=== PATIENT | female | born 1990 | race American Indian/Alaskan Native ===

== ENCOUNTER 2016-08-13 20:47 | Emergency (ER) | payer SELFPAY ==
--- NOTE | 2016-08-14 02:52 | Emergency Department Report ---
ED ENT HPI - General Chief complaint: Dental/Oral Stated complaint: TOOTHACHE Time Seen by Provider: 08/14/16 02:41 Source: patient Mode of arrival: Ambulatory Limitations: No Limitations - Related Data Previous Rx's Medication Instructions Recorded Last Taken Type HYDROcodone/APAP 5-325 [[place] 1 each PO Q6HR PRN #20 tablet 08/14/16 Unknown Rx 5/325] Penicillin Vk [Veetids TAB] 500 mg PO TID #21 tablet 08/14/16 Unknown Rx Allergies Allergy/AdvReac Type Severity Reaction Status Date / Time No Known Allergies Allergy Unverified 08/13/16 22:17 ED Dental HPI - General Chief complaint: Dental/Oral Stated complaint: TOOTHACHE Time Seen by Provider: 08/14/16 02:41 Source: patient Mode of arrival: Ambulatory Limitations: No Limitations - Related Data Previous Rx's Medication Instructions Recorded Last Taken Type HYDROcodone/APAP 5-325 [[place] 1 each PO Q6HR PRN #20 tablet 08/14/16 Unknown Rx 5/325] Penicillin Vk [Veetids TAB] 500 mg PO TID #21 tablet 08/14/16 Unknown Rx Allergies Allergy/AdvReac Type Severity Reaction Status Date / Time No Known Allergies Allergy Unverified 08/13/16 22:17 ED Review of Systems ROS: Stated complaint: TOOTHACHE Other details as noted in HPI ED Past Medical Hx - Past Medical History Previous Medical History?: No - Social History Smoking Status: Unknown if ever smoked - Medications Home Medications: Home Medications Medication Instructions Recorded Confirmed Last Taken Type HYDROcodone/APAP 5-325 [[place] 1 each PO Q6HR PRN #20 tablet 08/14/16 Unknown Rx 5/325] Penicillin Vk [Veetids TAB] 500 mg PO TID #21 tablet 08/14/16 Unknown Rx ED Physical Exam - General Limitations: No Limitations ED Course Vital Signs 08/13/16 08/14/16 22:18 03:11 Temperature 98.6 F 98.1 F Pulse Rate 86 89 Respiratory 18 16 Rate Blood Pressure 117/76 Blood Pressure 130/97 [Left] O2 Sat by Pulse 97 100 Oximetry - Reevaluation(s) Reevaluation #1: 08/14/16 03:43 Repeat chart Critical care attestation.: If time is entered above; I have spent that time in minutes in the direct care of this critically ill patient, excluding procedure time. ED Disposition Clinical Impression: Pain due to dental caries, Dental caries Disposition: DISCHARGED TO HOME OR SELFCARE Is pt being admited?: No Does the pt Need Aspirin: No Condition: Stable Instructions: Dental Caries (ED) Additional Instructions: Follow up with your dentist as scheduled. Prescriptions: HYDROcodone/APAP 5-325 [[place] 5/325] 1 each PO Q6HR PRN #20 tablet PRN Reason: Pain Penicillin Vk [Veetids TAB] 500 mg PO TID #21 tablet Referrals: PRIMARY CARE, [Primary Care Provider] - 3-5 Days Time of Disposition: 02:49
--- NOTE | 2016-08-14 02:57 | Emergency Department Report ---
ED ENT HPI - General Chief complaint: Dental/Oral Stated complaint: TOOTHACHE Time Seen by Provider: 08/14/16 02:41 Source: patient Mode of arrival: Ambulatory Limitations: No Limitations - History of Present Illness Initial comments: Patient complains of dental pain for the past month. Initially only in the left lower jaw. Now she has a bilaterally. She denies fevers she denies drainage. She denies rigors referred pain to the ears. She states she'll have insurance within the next 4 weeks will build follow up with the dentist at that time. - Related Data Previous Rx's Medication Instructions Recorded Last Taken Type HYDROcodone/APAP 5-325 [[place] 1 each PO Q6HR PRN #20 tablet 08/14/16 Unknown Rx 5/325] Penicillin Vk [Veetids TAB] 500 mg PO TID #21 tablet 08/14/16 Unknown Rx Allergies Allergy/AdvReac Type Severity Reaction Status Date / Time No Known Allergies Allergy Unverified 08/13/16 22:17 ED Dental HPI - General Chief complaint: Dental/Oral Stated complaint: TOOTHACHE Time Seen by Provider: 08/14/16 02:41 Source: patient Mode of arrival: Ambulatory Limitations: No Limitations - Related Data Previous Rx's Medication Instructions Recorded Last Taken Type HYDROcodone/APAP 5-325 [[place] 1 each PO Q6HR PRN #20 tablet 08/14/16 Unknown Rx 5/325] Penicillin Vk [Veetids TAB] 500 mg PO TID #21 tablet 08/14/16 Unknown Rx Allergies Allergy/AdvReac Type Severity Reaction Status Date / Time No Known Allergies Allergy Unverified 08/13/16 22:17 ED Review of Systems ROS: Stated complaint: TOOTHACHE Other details as noted in HPI Comment: All other systems reviewed and negative Constitutional: denies: chills, fever ENT: denies: ear pain, throat pain Respiratory: denies: cough, shortness of breath Cardiovascular: denies: chest pain ED Past Medical Hx - Past Medical History Previous Medical History?: No - Social History Smoking Status: Unknown if ever smoked - Medications Home Medications: Home Medications Medication Instructions Recorded Confirmed Last Taken Type HYDROcodone/APAP 5-325 [[place] 1 each PO Q6HR PRN #20 tablet 08/14/16 Unknown Rx 5/325] Penicillin Vk [Veetids TAB] 500 mg PO TID #21 tablet 08/14/16 Unknown Rx ED Physical Exam - General Limitations: No Limitations General appearance: alert, in no apparent distress - Head Head exam: Present: atraumatic, normocephalic - Eye Eye exam: Present: normal appearance, EOMI. Absent: scleral icterus - ENT ENT exam: Present: normal exam, mucous membranes dry, other (bilateral third molars on the bottom with evidence of caries with subsequent fracture.Does not appear to be any erythema in the gingival region or abscess appreciated. There is some mild tenderness on palpation the tooth no gum tenderness is appreciated though.) - Neck Neck exam: Present: normal inspection. Absent: tenderness, lymphadenopathy - Respiratory Respiratory exam: Present: normal lung sounds bilaterally. Absent: wheezes, rales - Cardiovascular Cardiovascular Exam: Present: regular rate, normal rhythm. Absent: systolic murmur, diastolic murmur ED Course Vital Signs 08/13/16 08/14/16 22:18 03:11 Temperature 98.6 F 98.1 F Pulse Rate 86 89 Respiratory 18 16 Rate Blood Pressure 117/76 Blood Pressure 130/97 [Left] O2 Sat by Pulse 97 100 Oximetry - Reevaluation(s) Reevaluation #1: 08/14/16 03:41 My suspicion is higher for dental caries as etiology of pain rather than abscesses. Will still try outpatient on antibiotics. She is understanding that this is only a Band-Aid. We will have her follow up with dentist. Critical care attestation.: If time is entered above; I have spent that time in minutes in the direct care of this critically ill patient, excluding procedure time. ED Disposition Clinical Impression: Pain due to dental caries, Dental caries Disposition: DISCHARGED TO HOME OR SELFCARE Is pt being admited?: No Does the pt Need Aspirin: No Condition: Stable Instructions: Dental Caries (ED) Additional Instructions: Follow up with your dentist as scheduled. Prescriptions: HYDROcodone/APAP 5-325 [[place] 5/325] 1 each PO Q6HR PRN #20 tablet PRN Reason: Pain Penicillin Vk [Veetids TAB] 500 mg PO TID #21 tablet Referrals: PRIMARY CARE, [Primary Care Provider] - 3-5 Days Time of Disposition: 03:42
[2016-08-14 03:11] VITALS: BP 130/97
== END 2016-08-14 03:10 | disposition home or self-care (01) ==
LOC: ED 20:47
DX: K02.9 Dental caries, unspecified (principal)
CPT/HCPCS: 99282

== ENCOUNTER 2017-04-13 14:16 | Emergency (ER) | payer OTHER ==
[2017-04-13] MEDS ORDERED: BSS 1 DROPS, TETRACAINE 0.5% 1 DROPS, FUL-GLO 1 MG TP ONE (14:24)
[2017-04-13] MEDS ORDERED: TETRACAINE 0.5% ONE (14:47)
[2017-04-13] MEDS ORDERED: BSS ONE (17:14)
[2017-04-13] MEDS ORDERED: FUL-GLO OP ONE ×2 (17:14→17:20)
[2017-04-13] MEDS ORDERED: BSS OU ONE (17:19)
[2017-04-13] MEDS ORDERED: ULTRAM PO ONE (17:37)
[2017-04-13] MEDS ORDERED: ZITHROMAX PO ONE (17:38)
[2017-04-13] MEDS ORDERED: CIPRODEX AD SCH (18:00)
--- NOTE | 2017-04-13 18:11 | Emergency Department Report ---
ED Eye Problem HPI - General Chief complaint: Eye Problems Stated complaint: EYE INFECTION Time Seen by Provider: 04/13/17 15:44 Source: patient Mode of arrival: Ambulatory Limitations: No Limitations - History of Present Illness Initial comments: This is a 26 y.o. female, presents with right eye swelling, pain, and drainage. She states symptoms started 4 days ago. She used old antibiotic and steroid eye drops from last visit to ER. Patient states this happened before 4 months ago after recovering from URI. She thought possibly the same thing was happening again so she started using old prescriptions 3 days ago. Admits to blurry vision , sensitivity to light, swelling, clear discharge, sharp pain, and feeling like sand is in right eye. Denies fever, SOB, or dizziness. MD chief complaint: eye pain, eye redness, vision change -: Sudden, days(s) (4 days ago) Onset Description: sudden, awoke with symptoms Location: right eye Place: home If Injury: none Eye Symptoms: redness, pain, foreign body sensation, discharge, blurry vision, photophobia Severity: severe Severity scale (0 -10): 8 If Pain, Quality: sharp, stabbing Consistency: constant Context: recent uri (URI 04/04/2017) Associated Symptoms: none. denies: headache, neck pain, nausea/vomiting, cough , rhinorrhea, fever, shortness of breath Treatments Prior to Arrival: OTC eye drops (cipro) - Related Data Previous Rx's Medication Instructions Recorded Last Taken Type HYDROcodone/APAP 5-325 [[place] 1 each PO Q6HR PRN #20 tablet 08/14/16 Unknown Rx 5/325] Penicillin Vk [Veetids TAB] 500 mg PO TID #21 tablet 08/14/16 Unknown Rx Bacitracin/Polymy B Opth Oint 1 applicatio OP BID 7 Days #1 tube 04/13/17 Unknown Rx [Polysporin Opth Oint] prednisoLONE ACETATE 1% [Pred 2 drops OD BID 7 Days #1 bottle 04/13/17 Unknown Rx Forte 1%] traMADol [Ultram 50 MG tab] 50 mg PO Q6HR PRN 5 Days #20 tablet 04/13/17 Unknown Rx Allergies Allergy/AdvReac Type Severity Reaction Status Date / Time No Known Allergies Allergy Verified 04/13/17 14:19 ED Review of Systems ROS: Stated complaint: EYE INFECTION Other details as noted in HPI Constitutional: no symptoms reported Eyes: eye pain, eye discharge, vision change (blurry) ENT: as per HPI Respiratory: no symptoms reported Cardiovascular: as per HPI Neurological: as per HPI. denies: headache, weakness, numbness, paresthesias, confusion, abnormal gait, vertigo Psychiatric: as per HPI. denies: anxiety, depression, auditory hallucinations, visual hallucinations, homicidal thoughts, suicidal thoughts ED Past Medical Hx - Past Medical History Previous Medical History?: No - Surgical History Past Surgical History?: No - Family History Family history: no significant - Social History Smoking Status: Never Smoker Substance Use Type: Alcohol - Medications Home Medications: Home Medications Medication Instructions Recorded Confirmed Last Taken Type HYDROcodone/APAP 5-325 [[place] 1 each PO Q6HR PRN #20 tablet 08/14/16 Unknown Rx 5/325] Penicillin Vk [Veetids TAB] 500 mg PO TID #21 tablet 08/14/16 Unknown Rx Bacitracin/Polymy B Opth Oint 1 applicatio OP BID 7 Days #1 tube 04/13/17 Unknown Rx [Polysporin Opth Oint] prednisoLONE ACETATE 1% [Pred 2 drops OD BID 7 Days #1 bottle 04/13/17 Unknown Rx Forte 1%] traMADol [Ultram 50 MG tab] 50 mg PO Q6HR PRN 5 Days #20 tablet 04/13/17 Unknown Rx ED Physical Exam - General Limitations: No Limitations General appearance: alert - Head Head exam: Present: normocephalic, normal inspection - Eye Eye exam: Present: conjunctival injection Pupils: Present: normal accommodation - Expanded Eye Exam Expanded Eyelids: Normal Inspection: Left, Erythema: Right, Swelling: Right Pupils: Regular, Round: Left, Reactive: Right Sclera/Conjunctival: Normal Inspection: Left, Injection: Right, Exudate: Right ( clear) Visual acuity (R) = 20/: 40 Visual acuity (L) = 20/: 20 With correction: No - ENT ENT exam: Present: normal exam - Neck Neck exam: Present: normal inspection, full ROM. Absent: tenderness, lymphadenopathy, thyromegaly - Respiratory Respiratory exam: Present: normal lung sounds bilaterally. Absent: respiratory distress, wheezes, rales, stridor, decreased breath sounds - Cardiovascular Cardiovascular Exam: Present: regular rate, normal rhythm, normal heart sounds. Absent: tachycardia, irregular rhythm, systolic murmur, diastolic murmur, rubs , gallop, clicks ED Course Vital Signs 04/13/17 04/13/17 14:19 19:22 Temperature 98.3 F Pulse Rate 104 H 78 Respiratory 18 16 Rate Blood Pressure 122/75 Blood Pressure 118/76 [Left] O2 Sat by Pulse 100 100 Oximetry Critical care attestation.: If time is entered above; I have spent that time in minutes in the direct care of this critically ill patient, excluding procedure time. ED Disposition Clinical Impression: Uveitis Disposition: DC-01 TO HOME OR SELFCARE Is pt being admited?: No Does the pt Need Aspirin: No Condition: Stable Instructions: Iritis (ED) Additional Instructions: Instructed to f/u with ophthalmology on Saturday. Follow-up with [facility], , Dr. Simpson. Prescriptions: Bacitracin/Polymy B Opth Oint [Polysporin Opth Oint] 1 applicatio OP BID 7 Days #1 tube prednisoLONE ACETATE 1% [Pred Forte 1%] 2 drops OD BID 7 Days #1 bottle traMADol [Ultram 50 MG tab] 50 mg PO Q6HR PRN 5 Days #20 tablet PRN Reason: Pain Referrals: KANCHAN HARE MD [Staff Physician] - 3-5 Days Forms: Work/School Release Form(ED) Time of Disposition: 18:45 Print Language: NORWEGIAN
[2017-04-13 19:22] VITALS: BP 118/76
== END 2017-04-13 19:24 | disposition home or self-care (01) ==
LOC: ED 14:16
DX: H20.9 Unspecified iridocyclitis (principal)
CPT/HCPCS: 99283

== ENCOUNTER 2017-07-31 09:47 | Emergency (ER) | payer SELFPAY ==
[2017-07-31 10:23] VITALS: BP 121/84
--- NOTE | 2017-07-31 12:39 | Emergency Department Report ---
ED ENT HPI - General Chief complaint: Dental/Oral Stated complaint: TOOTH ACHE Time Seen by Provider: 07/31/17 12:06 Source: patient Mode of arrival: Ambulatory Limitations: No Limitations - History of Present Illness Initial comments: Patient is a 26-year-old Female who is presenting with tooth pain. Patient states her right bottom wasn't tooth and adjacent molar have been hurting for some time. Patient states that the pain worsened over the past 3 weeks. Patient denies any fever chills nausea vomiting at this time. Patient has come here for treatment when asked why she did not go to a dentist she states because she doesn't have dental insurance. - Related Data Previous Rx's Medication Instructions Recorded Last Taken Type HYDROcodone/APAP 5-325 [[place] 1 each PO Q6HR PRN #20 tablet 08/14/16 Unknown Rx 5/325] Penicillin Vk [Veetids TAB] 500 mg PO TID #21 tablet 08/14/16 Unknown Rx Bacitracin/Polymy B Opth Oint 1 applicatio OP BID 7 Days #1 tube 04/13/17 Unknown Rx [Polysporin Opth Oint] prednisoLONE ACETATE 1% [Pred 2 drops OD BID 7 Days #1 bottle 04/13/17 Unknown Rx Forte 1%] traMADol [Ultram 50 MG tab] 50 mg PO Q6HR PRN 5 Days #20 tablet 04/13/17 Unknown Rx Allergies Allergy/AdvReac Type Severity Reaction Status Date / Time No Known Allergies Allergy Verified 04/13/17 14:19 ED Dental HPI - General Chief complaint: Dental/Oral Stated complaint: TOOTH ACHE Time Seen by Provider: 07/31/17 12:06 Source: patient Mode of arrival: Ambulatory Limitations: No Limitations - Related Data Previous Rx's Medication Instructions Recorded Last Taken Type HYDROcodone/APAP 5-325 [[place] 1 each PO Q6HR PRN #20 tablet 08/14/16 Unknown Rx 5/325] Penicillin Vk [Veetids TAB] 500 mg PO TID #21 tablet 08/14/16 Unknown Rx Bacitracin/Polymy B Opth Oint 1 applicatio OP BID 7 Days #1 tube 04/13/17 Unknown Rx [Polysporin Opth Oint] prednisoLONE ACETATE 1% [Pred 2 drops OD BID 7 Days #1 bottle 04/13/17 Unknown Rx Forte 1%] traMADol [Ultram 50 MG tab] 50 mg PO Q6HR PRN 5 Days #20 tablet 04/13/17 Unknown Rx Allergies Allergy/AdvReac Type Severity Reaction Status Date / Time No Known Allergies Allergy Verified 04/13/17 14:19 ED Review of Systems ROS: Stated complaint: TOOTH ACHE Other details as noted in HPI Comment: All other systems reviewed and negative ED Past Medical Hx - Past Medical History Previous Medical History?: No - Surgical History Past Surgical History?: No - Social History Smoking Status: Never Smoker Substance Use Type: Non Opiate Pain - Medications Home Medications: Home Medications Medication Instructions Recorded Confirmed Last Taken Type HYDROcodone/APAP 5-325 [[place] 1 each PO Q6HR PRN #20 tablet 08/14/16 Unknown Rx 5/325] Penicillin Vk [Veetids TAB] 500 mg PO TID #21 tablet 08/14/16 Unknown Rx Bacitracin/Polymy B Opth Oint 1 applicatio OP BID 7 Days #1 tube 04/13/17 Unknown Rx [Polysporin Opth Oint] prednisoLONE ACETATE 1% [Pred 2 drops OD BID 7 Days #1 bottle 04/13/17 Unknown Rx Forte 1%] traMADol [Ultram 50 MG tab] 50 mg PO Q6HR PRN 5 Days #20 tablet 04/13/17 Unknown Rx ED Physical Exam - General Limitations: No Limitations General appearance: alert - ENT ENT exam: Present: other (patient has 2 large cavities in her right bottom wisdom tooth and adjacent molar there is pain with palpation of both these teeth ) - Respiratory Respiratory exam: Present: normal lung sounds bilaterally - Cardiovascular Cardiovascular Exam: Present: regular rate ED Course Vital Signs 07/31/17 10:21 Temperature 99.1 F Pulse Rate 102 H Respiratory 20 Rate Blood Pressure 121/84 O2 Sat by Pulse 100 Oximetry ED Medical Decision Making - Medical Decision Making Patient states not have a urgent life-threatening medical condition. Patient has had ample time to see a dentist but is chose the emergency department for her dental care today. Discussed with the patient that the only thing we be able to add offer was antibiotics and NSAIDs but would also because she has a nonmedical emergent condition she would need to pay a co-pay patient is elected to not pay a co-pay for treatment here in the emergency department she is referred to his outside medical clinic down the street but does have a dentist. Patient will be discharged as a community referral. Critical care attestation.: If time is entered above; I have spent that time in minutes in the direct care of this critically ill patient, excluding procedure time. ED Disposition Clinical Impression: Dental cavities, Dental abscess Disposition: MED SCREENING EXAM-LEFT Is pt being admited?: No Does the pt Need Aspirin: No Condition: Stable Additional Instructions: Please take Motrin and Tylenol [id number] for pain. He may also want to try Anbesol or liquid tooth numbing Referrals: [facility] [Outside] - 3-5 Days
== END 2017-07-31 12:41 | disposition left against medical advice (07) ==
LOC: ED 09:47
DX: K04.7 Periapical abscess without sinus (principal)
CPT/HCPCS: 99282